=== PATIENT | female | born 1955 | race Caucasian/White ===

== ENCOUNTER 2023-12-24 17:41 | Emergency (ER) | payer MEDICARE, OTHER, SELFPAY ==
[2023-12-24 17:45] VITALS: BP 105/64
[2023-12-24 18:07] LABS: % Eosinophils 1.2 % (0-6); % Immature Granulocytes 3.6 % (0-0.5); % Lymphocytes 5.7 % (20.5-51.1); % Monocytes 14.7 % (1.7-9.3); % Neutrophils 73.8 % (42.2-75.2); Absolute Basophils 0.1 10^3/uL (0-0.2); Absolute Eosinophils 0.1 10^3/uL (0-0.7); Absolute Immature Granulocytes 0.2 10^3/uL (0-0.05); Absolute Lymphocytes 0.3 10^3/uL (1.2-3.4); Absolute Monocytes 0.7 10^3/uL (0.1-0.6); Absolute Neutrophils 3.7 10^3/uL (1.4-6.5); Hematocrit 41.4 % (37.0-47.0); Mean Corp Hgb Conc. 33.8 g/dL (33.0-37.0); Mean Corpuscular Hgb 32.1 pg (27.0-31.0); Mean Platelet Volume 11.3 fL (7.4-10.4); Nucleated Red Blood Cells % 0 %; Platelet Count 144 10^3/uL (130-400); Red Blood Cell Count 4.36 10^6/uL (4.20-5.40); Red Cell Dist. Width 15.5 % (11.5-14.5)
[2023-12-24 18:29] LABS: ALT (SGPT) 29 U/L (0-35); AST (SGOT) 37 U/L (14-36); Albumin 4.4 g/dl (3.5-5.0); Alkaline Phosphatase 151 U/L (38-126); Blood Urea Nitrogen 23 mg/dl (7-17); Calcium 9.7 mg/dl (8.4-10.2); Carbon Dioxide 20 mmol/L (22-30); Chloride 102 mmol/L (98-107); Glucose 148 mg/dl (70-99); Lipase 185 U/L (23-300); Potassium 4.2 mmol/L (3.5-5.1); Sodium 139 mmol/L (135-145); Total Bilirubin 0.6 mg/dl (0.2-1.3); Total Protein 7.1 g/dl (6.3-8.2); eGFR 44.24
[2023-12-24 20:17] VITALS: BP 103/75
[2023-12-24 20:21] VITALS: BMI 28.0
[2023-12-24 20:24] LABS: Urine Albumin Trace (Neg - Trace); Urine Bilirubin 1+ (Negative); Urine Character Clear (Clear); Urine Color Yellow; Urine Glucose Negative (Negative); Urine Ketone Negative (Negative); Urine Leukocyte 1+ (Negative); Urine Nitrite Negative (Negative); Urine Occult Blood Negative (Negative); Urine Specific Gravity 1.015 (<1.030); Urine Urobilinogen Negative (Neg - 1+)
[2023-12-24 20:36] LABS: Urine Calcium Oxalate Crystals Present
[2023-12-24 20:37] LABS: Urine White Cell 30-40 /HPF (0-5)
[2023-12-24 20:38] LABS: Urine Red Blood Cell None Seen /HPF (0-2)
[2023-12-24 21:00] VITALS: BP 117/65
[2023-12-24 22:00] VITALS: BP 106/59
[2023-12-24] MEDS: ZYVOX 600 MG PO (23:03)
--- NOTE | 2023-12-31 19:02 | ED.GENMED ---
History of Present Illness
General
Chief Complaint: Abdominal Symptoms
Source: patient
Exam Limitations: none
Time Seen by Provider: 12/24/23 20:29
Nursing documentation reviewed up to this point in time: agreed with
History of Present Illness
History of Present Illness:
68 yo female w h/o HTN, HLD, GERD, Non Hodgkin lymphoma, had one episode vomiting earlier today. Had U/A done at PCP and was called today to say she needs antibiotics, is resistant to multiple organisms and he wants her to have Linezolid. She is not
nauseous, denies fever/chills, CP, SOB.
Past History
Past History
ED Past Medical History: Cancer (lymphoma), Other (lymphoma) and Other (anemia)
ED Past Surgical History: Cholecystectomy
Social History
Tobacco: Non-smoker
Alcohol: None
Drug: None
Personal:
Living: with family
Review of Systems
Review of Systems
Allergies reviewed?: Yes
All Other Systems: ROS reviewed and negative except as documented in HPI and ROS
ABD/GI: Reports nausea and vomiting (once earlier today, denies nausea at this time. )
: Reports dysuria and frequency; Denies flank pain, incontinence or difficulty voiding
Musculoskeletal: Denies edema
Skin: Reports no symptoms
Neurological: Reports no symptoms
Phy Exam
Physical Exam
Physical Exam:
GENERAL: No acute distress. A&Ox3.
CONSTITUTIONAL: Afebrile.
EYES: clear, conjunctivae normal
ENMT: moist mucus membranes, Pharynx nl
RESPIRATORY: Regular respirations, nonlabored, lungs clear.
CARDIOVASCULAR: Regular rate and rhythm, no murmurs, no rubs.
GI: Soft, nontender, normal BS
MUSCULOSKELETAL: Moves with ease. Well perfused.
SKIN: Warm, dry, pink. Left chest port
PSYCH: Normal mood and affect. Well kept, interactive and appropriate
NEUROLOGIC: Awake, alert and oriented. No focal neurological deficits
Course
Orders/Labs/Results
Orders:
Orders
12/24/23 18:03
Complete Blood Count/With Diff Urgent
Comprehensive Metabolic Panel Urgent
Lipase Urgent
12/24/23 20:16
Urinalysis Reflex To Culture Urgent
Date Specimen was Collected: 12/24/23
Time Specimen was Collected: 20:06
Urine Microscopic Reflex Cult Urgent
Urine Culture Urgent
ERIC Source: U
Specimen Description:
Date Specimen was Collected: 12/24/23
Time Specimen was Collected: 20:06
12/24/23 21:39
Matthew Wrap Right-Treatment ONCE
12/24/23 22:45
Linezolid [Zyvox] 600 mg PO NOW STA
Abnormal Lab Results
12/24/23 12/24/23
18:03 20:16
MCH 32.1 H pg
(27.0-31.0)
RDW 15.5 H %
(11.5-14.5)
MPV 11.3 H fL
(7.4-10.4)
Abs Immat Gran (auto) 0.2 H 10^3/uL
(0-0.05)
Absolute Lymphs (auto) 0.3 L 10^3/uL
(1.2-3.4)
Absolute Monos (auto) 0.7 H 10^3/uL
(0.1-0.6)
Immature Gran % 3.6 H %
(0-0.5)
Lymphocytes % 5.7 L %
(20.5-51.1)
Monocytes % 14.7 H %
(1.7-9.3)
Carbon Dioxide 20 L mmol/L
(22-30)
BUN 23 H mg/dl
(7-17)
Creatinine 1.3 H mg/dL
(0.6-1.0)
Glucose 148 H mg/dl
(70-99)
AST 37 H U/L
(14-36)
Alkaline Phosphatase 151 H U/L
(38-126)
Urine Bilirubin 1+ A
(Negative)
Leukocyte Esterase Rfl 1+ A
(Negative)
Urine WBC (Reflex) 30-40 A /HPF
(0-5)
12/24/23 18:03
12/24/23 18:03
Vital Signs
Initial and Last Documented VS:
Initial Vital Signs
Temp Pulse Resp BP Pulse Ox
97.8 F 105 16 105/64 97
12/24/23 17:45 12/24/23 17:45 12/24/23 17:45 12/24/23 17:45 12/24/23 17:45
Last Documented Vital Signs
Temp Pulse Resp BP Pulse Ox
99.4 F 87 18 106/59 96
12/24/23 22:33 12/24/23 22:15 12/24/23 22:15 12/24/23 22:00 12/24/23 22:15
MDM/Problems Addressed
MDM/Problems Addressed:
68 yo female w h/o HTN, HLD, GERD, Non Hodgkin lymphoma, had one episode vomiting earlier today. Had U/A done at PCP and was called today to say she needs antibiotics, is resistant to multiple organisms and he wants her to have Linezolid. She is not
nauseous, denies fever/chills, CP, SOB.
Records reviewed and pt has had Linezolid in the past
Afebrile, NAD
CBC unremarkable
CMP with no clinically significant abnormality
UA: 30-40 WBCs, negative nitrates
Patient was given 1 dose of linezolid here
She is on sertraline and I informed her to not take her sertraline tonight. She states she has stopped it in the past for similar reasons
She will contact her [facility] doctor tomorrow to discuss today's visit
Urine culture pending
Pt feels good, no fever, no pain, no nausea, stable for discharge to f/u with [facility] doctor tomorrow.
*Critical Care Note
Total Time (30-74mins, 75-104mins- exclusive of procedures): Not Applicable
ED Attending Note
-
Portions of this chart may have been created with voice recognition software.� Occasional wrong word or��sound alike� substitutions may have occurred due to the inherent limitations of voice recognition software.
Discharge Plan
Departure
Patient Disposition: Home (Routine Discharge)
Date of Disposition: 12/24/23
Time of Disposition: 22:34
Patient with high blood pressure during this ER visit?: No
Condition: Good
Discharge Problem:
Chronic UTI
Instructions: Urinary tract infections in adults, Linezolid
Prescriptions:
No Action
omeprazole 20 MG capsule,delayed release(DR/EC)
20 mg PO DAILYPRN PRN (Reason: reflux)
acyclovir 800 MG tablet
800 mg PO BID
ondansetron HCl [Zofran] 8 mg Tablet
8 mg PO Q8HPRN PRN (Reason: nasuea)
famotidine [Pepcid] 20 mg Tablet
20 mg PO BID
folic acid 1 mg Tablet
1 mg PO DAILY
sertraline 50 mg Tablet
50 mg PO DAILY
zanubrutinib 80 mg Capsule
160 mg PO BID
atorvastatin 40 mg Tablet
40 mg PO HS
acetaminophen [Tylenol] 325 mg Tablet
650 mg PO Q4HPRN PRN (Reason: mild pain)
cefpodoxime 200 mg Tablet
200 mg PO Q12H
Patient Comments:
12/17/22 filled on 12/11/22 #20
sulfamethoxazole-trimethoprim 800-160 mg tablet
1 tab PO MOWEFR
Patient Comments:
12/17/22 filled on 12/08/22 #38
lorazepam [Ativan] 1 mg Tablet
1 mg PO BID PRN (Reason: anxiety)
Referrals:
Nato, Hussein Nguyễn [Other] - Tomorrow
Adria Zapata MD [Active] - Call in 1-3 days for appt
Kayli Peters MD [Family Provider] -
Activity Restrictions/Additional Instructions:
As we discussed, you were given a dose of linezolid 600 mg here tonight. Do not take your sertraline tomorrow as there can be a dangerous interaction between the sertraline and the linezolid.
Call Hussein tomorrow and explain that I did not give you a prescription because of the potential interaction with the sertraline and this drug should be prescribed by your primary doctor or one of your specialists.
Since you do not have a fever, you have no pain, you are not nauseous, you vomited once today but none since and you are feeling better, you are stable to be discharged to follow-up with your doctors tomorrow
Interventions
Interventions:
*Risk Screen - Suicide Last Done: 12/24/23 17:45
*General Assessment Last Done: 12/24/23 17:45
*Neglect/Abuse Screening Last Done: 12/24/23 17:45
*ED COVID-19 Vaccine History Last Done: 12/24/23 20:17
*Nursing Disposition Last Done: 12/24/23 22:49
[facility] Assessment Last Done: 12/24/23 20:17
Discharge Date and Time
Discharge Date/Time: 12/24/23 23:05
Print Language: SAUDI ARABIAN
== END 2023-12-24 23:05 | disposition home or self-care (01) ==
LOC: EMR 17:41
PROVIDERS: Emergency Medicine; EMERGENCY PHYSICIAN Emergency Medicine; FAMILY PHYSICIAN Family Medicine
DX: N39.0 Urinary tract infection, site not specified (principal); I10 Essential (primary) hypertension; E78.00 Pure hypercholesterolemia, unspecified; K21.9 Gastro-esophageal reflux disease without esophagitis; Z85.72 Personal history of non-Hodgkin lymphomas; Z90.49 Acquired absence of other specified parts of digestive tract
CPT/HCPCS: 99283; 80053; 81003; 81015; 83690; 85025; 87086

== ENCOUNTER → 2024-05-31 11:57 | Outpatient (REF) | payer MEDICARE, OTHER, SELFPAY | LOC: WDC 11:57 | PROVIDERS: ATTENDING PHYSICIAN Family Medicine | DX: Z12.31 Encounter for screening mammogram for malignant neoplasm of breast (principal) | CPT/HCPCS: 77063; 77067 ==